=== PATIENT | female | born 1965 | race Caucasian/White ===

== ENCOUNTER 2018-02-10 16:15 | Outpatient (CLI) | payer BC | END 2018-02-10 16:16 | disposition home or self-care (01) | LOC: BICMAMMO 16:15 | PROVIDERS: ATTEND Obstetrics & Gynecology | DX: Z12.31 Encounter for screening mammogram for malignant neoplasm of breast; N63.10 Unspecified lump in the right breast, unspecified quadrant | CPT/HCPCS: 77063; 77067 ==

== ENCOUNTER 2018-02-20 14:39 | Outpatient (CLI) | payer BC | END 2018-02-20 14:40 | disposition home or self-care (01) | LOC: BICMAMMO 14:39 | PROVIDERS: ATTEND Obstetrics & Gynecology | DX: N63.10 Unspecified lump in the right breast, unspecified quadrant (principal); N60.01 Solitary cyst of right breast | CPT/HCPCS: G0279 ==

== ENCOUNTER 2020-02-11 15:30 | Outpatient (CLI) | payer BC ==
--- NOTE | 2020-02-11 15:58 | ULT ---
Left lower extremity venous ultrasound with Doppler HISTORY: Bilateral leg swelling, left greater than right. COMPARISON: None TECHNIQUE: Grayscale, color flow, Doppler imaging and spectral waveform analysis of the left lower ex tremity venous system is performed FINDINGS: Soft tissue edema Compressibility, presence of flow and augmentation in the common femoral vein, femoral vein and popli teal vein. Flow the profunda femoral vein and posterior tibial vein. IMPRESSION: 1. Soft tissue edema 2. No evidence of thrombus in the left lower extremity deep venous system
== END 2020-02-11 15:31 | disposition home or self-care (01) ==
LOC: BICULT 15:30
PROVIDERS: ATTEND Family Medicine
DX: M79.89 Other specified soft tissue disorders (principal); R60.0 Localized edema

== ENCOUNTER 2022-07-21 20:30 | Observation (INO) | payer BC ==
[~2022-07-21 20:30] MED LIST: Iopamidol-370 76% 500 ML 1 ML ONE
[2022-07-21 22:15] LABS: #Eosinphils 0.1 thou/uL (0.0-0.7); #Lymphocytes 1.3 thou/uL (1.20-3.40); #Monocytes 0.9 thou/uL (0.11-0.59); #Neutrophils 12.9 thou/uL (1.40-6.50); %Basophils 0.2 % (0.0-1.0); %Eosinophils 0.5 % (0.0-10.0); %Lymphocytes 8.8 % (21.0-51.0); %Monocytes 5.9 % (0.0-10.0); %Neutrophils 84.6 % (42.0-75.0); Hemoglobin 14.2 g/dL (12.0-16.0); Mean Corpuscular HGB CONC 32.4 g/dL (32.0-36.0); Mean Corpuscular Volume 92.5 fL (78.0-98.0); Mean Platelet Volume 8.3 fL (7.4-10.4); Platelet Count 196 thou/uL (130-400); RBC Distribution Width 12.3 % (11.5-14.5); Red Blood Cell (RBC) Count 4.72 mill/uL (4.20-5.40); White Blood Cell (WBC) Count 15.2 thou/uL (4.8-10.8)
[2022-07-21 22:40] LABS: ALT (SGPT) 18 U/L (8-55); AST (SGOT) 18 U/L (5-34); Albumin 4.3 g/dL (3.5-5.0); Alkaline Phosphatase 69 U/L (40-110); Anion Gap 16 mmol/L (10-20); BUN (Urea Nitrogen) 15 mg/dL (9.8-20.1); Bilirubin, Total 1.3 mg/dL (0.2-1.2); Calc. Creatinine Clearance 0 mL/min (70-130); Carbon Dioxide 25 mmol/L (22-29); Chloride 101 mmol/L (98-107); Estimated GFR 93; Globulin 2.5 g/dL (2.4-3.5); Glucose 128 mg/dL (70-105); Potassium 3.9 mmol/L (3.5-5.1); Protein, Total 6.8 g/dL (6.0-8.3); Sodium 138 mmol/L (136-145)
[2022-07-21] MEDS ORDERED: Ketorolac Tromethamine 30 MG/ML VIAL ONE (22:47)
[2022-07-21] MEDS ORDERED: Morphine 4 MG/ML VIAL ONE (22:47)
[2022-07-21] MEDS ORDERED: cefTRIAXone\\ROCEPHIN 1 GM VIAL ONE (23:40)
[2022-07-22] MEDS ORDERED: Azithromycin 500 MG VIAL ONE (00:26)
[2022-07-22 01:49] LABS: SARS-CoV-2 NAA Rapid Test Not Detected (NotDetected)
[2022-07-22 02:32] LABS: Troponin I Less than 0.010 ng/mL (< 0.028)
[2022-07-22 05:16] LABS: Troponin I Less than 0.010 ng/mL (< 0.028)
[2022-07-22] MEDS ORDERED: Acetaminophen 325 MG TAB PO PRN (08:00)
[2022-07-22] MEDS ORDERED: Ondansetron PF 4 MG/2 ML Vial IVP PRN (08:00)
[2022-07-22] MEDS ORDERED: Senokot S 8.6-50 MG TAB PO PRN (08:00)
[2022-07-22] MEDS ORDERED: Ondansetron ODT 4 MG TAB PO PRN (08:00)
[2022-07-22] MEDS ORDERED: Morphine 2 MG/ML VIAL SLOW IVP PRN (08:14)
[2022-07-22] MEDS ORDERED: Acetaminophen 325 MG TAB ONE (08:28)
[2022-07-22] MEDS ORDERED: Enoxaparin Sodium 40 MG/0.4 ML SYRINGE ONE (08:39)
[2022-07-22] MEDS ORDERED: Aspirin Chewable 81 MG TAB ONE (08:39)
[2022-07-22 08:55] LABS: Hemoglobin A1c 5.1 % (4.0-6.0)
[2022-07-22] MEDS ORDERED: Enoxaparin Sodium 40 MG/0.4 ML SYRINGE SC SCH (09:00)
[2022-07-22] MEDS ORDERED: Aspirin Chewable 81 MG TAB PO SCH (09:00)
[2022-07-22 09:06] LABS: Cardiac Risk 3.1 (Less than 4.5)
[2022-07-22 11:45] VITALS: BP 115/66; TEMP 98
== END 2022-07-22 11:55 | disposition home or self-care (01) ==
LOC: ERS 20:30 → ERHOLD 23:14
PROVIDERS: ADMIT Internal Medicine; ATTEND Internal Medicine
DX: R07.89 Other chest pain (principal); R06.02 Shortness of breath; R42 Dizziness and giddiness; R91.8 Other nonspecific abnormal finding of lung field; D72.829 Elevated white blood cell count, unspecified; E78.5 Hyperlipidemia, unspecified; Z20.822 Contact with and (suspected) exposure to COVID-19
CPT/HCPCS: 36415; 71045; 71275; 80053; 80061; 83036; 83880; 84484; 85025; 87040; 93005; G0378; J0456; J0696; J1650; J1885; J2270; Q9967; U0002